=== PATIENT | male | born 1965 | race Caucasian/White ===

== ENCOUNTER 2016-12-31 07:26 | Day surgery (SDC) | payer MEDICARE ==
[~2016-12-31 07:26] MED LIST: Metoclopramide 10 MG/2 ML SDV IV PRN; Sodium Chloride 0.9% 1,000 ML IV SCH; Sodium Chloride 0.9% 10 ML Syringe FLUSH PRN
[2016-12-31] MEDS ORDERED: Propofol 200 MG/20 ML SDV ONE (09:30)
--- NOTE | 2016-12-31 12:57 | OR ---
DATE OF OPERATION: 12/31/2016 PREOPERATIVE DIAGNOSIS: Screening colonoscopy, primary. POSTOPERATIVE DIAGNOSES: 1. Transverse colon polyp. 2. Sigmoid colon polyp. OPERATION: Primary screening colonoscopy, average risk. COMPLICATIONS: None. DRAINS: None. SPECIMENS: 1. Transverse colon polyp. 2. Sigmoid colon polyp. ESTIMATED BLOOD LOSS: Minimal. ANESTHESIA: General propofol anesthesia. INDICATIONS: Mr. Rajan is a 51-year-old gentleman, here for his primary screening colonoscopy. He is of average risk. The above-mentioned procedure was explained. The risks, benefits, and complications were explained. The patient understood and agreed, and is brought to the operating room. DESCRIPTION OF PROCEDURE: The patient was brought to the operating room, placed in the left lateral decubitus position on the operating room table. Satisfactory general propofol anesthesia was administered. We began by performing a rectal examination which was within normal limits. I then placed the endoscope by finger introduction into the rectum and subsequently advanced to the level of the cecum. Cecum was identified by the appendiceal orifice, the cecal strap, and the ileocecal valve. Next, a careful evaluation of the mucosa was performed on withdrawal. The prep was good and after lavage, the views were good. There was a semi-pedunculated small polypoid-appearing polyp in the transverse colon. This was approximately less than 0.5 cm. This polyp was removed by cold biopsy polypectomy. It was completely removed and retrieved. Continued evaluation of the colon revealed no diverticula or neoplastic growths or telangiectasias. There was however, another polyp identified in the sigmoid colon. Again, a less than 0.5 cm polyp which was considered small. This was also semi-pedunculated and appeared polypoid in nature. The polyp was again removed by cold biopsy polypectomy and this was completely removed and retrieved as well for histology. The remainder of the colon was within normal limits. We then performed a retroflexion maneuver in the rectum which revealed no significant findings. The colon was decompressed and the endoscope was withdrawn. The patient tolerated the procedure well. There were no complications. Instrument count was correct. The patient was awoken in the OR and taken to the PACU for recovery. RAYSHAWN/MARTINEZ /[id number]
[2016-12-31 14:26] VITALS: BP 112/80
== END 2016-12-31 12:06 | disposition home or self-care (01) ==
LOC: LB.SDS 07:26
PROVIDERS: ATTEND Surgery
DX: Z12.11 Encounter for screening for malignant neoplasm of colon (principal); D12.3 Benign neoplasm of transverse colon; D12.5 Benign neoplasm of sigmoid colon; Z88.1 Allergy status to other antibiotic agents; Z91.018 Allergy to other foods; Z79.899 Other long term (current) drug therapy; Z95.0 Presence of cardiac pacemaker; Z79.891 Long term (current) use of opiate analgesic
CPT/HCPCS: 45380; 88305; J2704; J2765; J7040

== ENCOUNTER 2022-10-18 18:18 | Emergency (ER) | payer MEDICARE ==
[2022-10-18] MEDS ORDERED: Sodium Chloride 0.9% 10 ML Syringe FLUSH PRN (18:32)
[2022-10-18 19:26] LABS: TROPONIN I HIGH SENSITIVITY 18.8 pg/ml (<=60.4)
[2022-10-18] MEDS ORDERED: Furosemide 20 MG/2 ML VIAL IVPUSH ONE (19:41)
[2022-10-18] MEDS ORDERED: Furosemide 40 MG/4 ML VIAL ONE (19:59)
[2022-10-18] MEDS ORDERED: LORazepam 2 MG/ML SDV IVPUSH ONE (21:01)
[2022-10-18] MEDS ORDERED: LORazepam 2 MG/ML SDV ONE (21:14)
[2022-10-18 21:35] VITALS: BP 147/106; PULSE 77
== END 2022-10-18 21:25 | disposition home or self-care (01) ==
LOC: SUPCPDRO 18:18 → LB.ED 18:18
DX: I11.0 Hypertensive heart disease with heart failure (principal); I50.1 Left ventricular failure, unspecified; I48.91 Unspecified atrial fibrillation; E78.00 Pure hypercholesterolemia, unspecified; Z95.0 Presence of cardiac pacemaker; Z88.1 Allergy status to other antibiotic agents; Z79.82 Long term (current) use of aspirin
CPT/HCPCS: 36415; 71045; 80048; 83735; 83880; 84100; 84484; 85027; 85610; 93005; 96374; 96375; 99285-25; J1940; J2060; J3490

== ENCOUNTER 2022-10-24 08:07 | Emergency (ER) | payer MEDICARE ==
[2022-10-24] MEDS ORDERED: LORazepam 1 MG Tab PO ONE (08:30)
[2022-10-24 09:23] VITALS: BP 167/103; PULSE 80
[2022-10-24] MEDS ORDERED: LORazepam 1 MG Tab ONE (09:30)
== END 2022-10-24 09:33 | disposition home or self-care (01) ==
LOC: LB.ED 08:07
DX: F41.9 Anxiety disorder, unspecified (principal); G47.00 Insomnia, unspecified; I48.91 Unspecified atrial fibrillation; I10 Essential (primary) hypertension; E78.00 Pure hypercholesterolemia, unspecified; Z88.1 Allergy status to other antibiotic agents; Z95.0 Presence of cardiac pacemaker; Z79.01 Long term (current) use of anticoagulants; Z79.899 Other long term (current) drug therapy
CPT/HCPCS: 99283; A9270-GY

== ENCOUNTER 2024-01-02 18:20 | Emergency (ER) | payer MEDICARE ==
[2024-01-02] MEDS: EPINEPHrine 1:10,000 1 MG/10 ML Syringe IVPUSH SCH ×4 (18:20→18:31)
== END 2024-01-03 00:05 | disposition expired ==
LOC: LB.ED 18:20
DX: I46.9 Cardiac arrest, cause unspecified (principal); I10 Essential (primary) hypertension
CPT/HCPCS: 36680; 82947; 92950; 99285; 99285-25; A0425; A0429; J0171